=== PATIENT | female | born 1935 | race Caucasian/White ===

== ENCOUNTER 2019-03-28 11:21 | Emergency (ER) | payer MEDICARE, BC ==
--- NOTE | 2019-03-28 12:28 | UC ---
Respiratory Complaint HPI - HPI Summary HPI Summary: cough x 2 days cough is productive with bloody sputum nasal congestion , pnd, no fever, no chills pt's daughter has been sick for few months with reparatory symptoms after her travel to [place] pt. has been feeling fatigue , denies any sob - History of Current Complaint Chief Complaint: UCRespiratory Stated Complaint: COUGH Time Seen by Provider: 03/28/19 11:34 Hx Obtained From: Patient Onset/Duration: Gradual Onset, Lasting Days - 2, Still Present Timing: Constant Severity Initially: Moderate Severity Currently: Moderate Pain Intensity: 0 Character: Cough: Productive Aggravating Factors: Exertion, Deep Breaths Alleviating Factors: Nothing Associated Signs And Symptoms: Positive: Hemoptysis, URI, Nasal Congestion. Negative: Dyspnea, Fever, Chills, Pleuritic Chest Pain, Wheezing, Dizziness, Calf Pain, Calf Swelling - Allergies/Home Medications Allergies/Adverse Reactions: Allergies Allergy/AdvReac Type Severity Reaction Status Date / Time codeine Allergy Unknown Verified 03/28/19 11:59 Reaction Details propoxyphene AdvReac Nausea Verified 03/28/19 11:59 Home Medications: Home Medications Acetaminophen [Acetaminophen Extra Strength] 1,000 mg PO Q6H PRN 03/28/19 [ History Confirmed 03/28/19] Apixaban* [Eliquis*] 5 mg PO BID 03/28/19 [History Confirmed 03/28/19] Lisinopril/Hydrochlorothiazide [Lisinopril-Hctz 20-12.5 mg Tab] 0.5 tab PO DAILY 03/28/19 [History Confirmed 03/28/19] Potassium Chlor TAB* [Klor Con ER TAB*] 20 meq PO DAILY 03/28/19 [History Confirmed 03/28/19] Vitamin THERAPEUTIC TAB* [Theragran TAB*] 1 tab PO DAILY 03/28/19 [History Confirmed 03/28/19] amLODIPine TAB* [Norvasc 5 mg TAB*] 10 mg PO DAILY 03/28/19 [History Confirmed 03/28/19] PMH/Surg Hx/FS Hx/Imm Hx Cardiovascular History: Hypertension - Surgical History Surgical History: Yes Surgery Procedure, Year, and Place: CHOLECYSTECTOMY--1993. B/L HIP REPLACEMENT- -1996. SKIN SX - Social History Alcohol Use: None Substance Use Type: None Smoking Status (MU): Never Smoked Tobacco Review of Systems All Other Systems Reviewed And Are Negative: Yes Constitutional: Positive: Chills, Fatigue Skin: Positive: Negative Eyes: Positive: Negative ENT: Positive: Nasal Discharge Respiratory: Positive: Cough Cardiovascular: Positive: Palpitations Gastrointestinal: Positive: Negative Is Patient Immunocompromised?: No Physical Exam Triage Information Reviewed: Yes Appearance: Well-Appearing, No Pain Distress, Well-Nourished Vital Signs: Initial Vital Signs Temp 97.5 F 03/28/19 11:40 Pulse 89 03/28/19 11:40 Resp 15 03/28/19 11:40 BP 88/52 03/28/19 11:40 Pulse Ox 90 03/28/19 11:40 Vital Signs Reviewed: Yes Eye Exam: Normal Eyes: Positive: Conjunctiva Clear ENT: Positive: Normal ENT inspection, Pharynx normal Neck: Positive: Supple, Nontender, No Lymphadenopathy Respiratory: Positive: Decreased breath sounds, Crackles - left lower lungs Cardiovascular: Positive: Tachycardia, Other: - irr-irr Abdominal Exam: Normal Abdomen Description: Positive: Nontender, Soft Musculoskeletal Exam: Normal Neurological Exam: Normal Neurological: Positive: Alert Skin Exam: Normal Respiratory Course/Dx - Differential Dx/Diagnosis Provider Diagnosis: Cough, Hypoxia, Hypotension Discharge ED - Sign-Out/Discharge Documenting (check all that apply): Patient Departure All imaging exams completed and their final reports reviewed: No Studies - Discharge Plan Condition: Stable Disposition: HOME Patient Education Materials: Acute Bronchitis (ED), Hypotension (ED), Hypoxia ( ED) Referrals: Sherif Celaya MD [Primary Care Provider] - Additional Instructions: pt. will drive herself to [facility] ED against medical advice pt. will sign AMA - Billing Disposition and Condition Condition: STABLE Disposition: Home
[2019-03-28 12:29] VITALS: BP 97/57
== END 2019-03-28 12:15 | disposition home or self-care (01) ==
LOC: UCCORT 11:21
DX: R05 Cough (principal); R09.02 Hypoxemia; I95.9 Hypotension, unspecified; R68.83 Chills (without fever); R53.83 Other fatigue; R09.89 Other specified symptoms and signs involving the circulatory and respiratory systems; Z88.5 Allergy status to narcotic agent
CPT/HCPCS: 99213; G0463